=== PATIENT | male | born 1960 | race Two or more races ===

== ENCOUNTER 2022-02-13 19:36 | Inpatient (IN) | payer OTHER ==
[~2022-02-13] VITALS: Ht 170.2 cm; Wt 95.0 kg
[2022-02-13] MEDS ORDERED: SODIUM CHLORIDE 0.9% 1,000 ML IVB ONE (20:15)
[2022-02-13] MEDS ORDERED: MORPHINE SULFATE 4 MG/ML SYR/VIAL IV ONE (20:15)
[2022-02-13] MEDS ORDERED: ONDANSETRON HCL 4 MG/2 ML VIAL IV ONE (20:15)
[2022-02-13 20:31] LABS: Urine Bacteria NONE SEEN /hpf (None Seen); Urine Blood Negative /uL (Negative); Urine Specific Gravity 1.015 (1.001-1.035); Urine WBC 1 /hpf (0 - 3)
[2022-02-13 21:27] LABS: Basophils # (auto) 0.1 10 ^3/uL (0-0.2); Basophils % (auto) 0.6 % (0.0-2.0); Eosinophils # (auto) 0.1 10 ^3/uL (0-0.8); Eosinophils % (auto) 0.4 % (0.0-7.0); Hematocrit 51.9 % (41.0-53.0); Hemoglobin 17.1 g/dL (13.5-17.5); Lymphocytes # (auto) 1.3 10 ^3/uL (0.4-5.4); Lymphocytes % (auto) 9.4 % (10.0-50.0); Mean Corpuscular Hemoglobin 30.4 pg (28.0-32.0); Mean Corpuscular Volume 92.2 fL (80.0-100.0); Monocytes # (auto) 0.8 10 ^3/uL (0-1.3); Monocytes % (auto) 5.5 % (0.0-12.0); Neutrophils % (auto) 84.1 % (37.0-80.0); Red Blood Cells 5.63 10^6/uL (4.5-5.90); Red Cell Distribution Width 13.1 % (11.8-14.3); White Blood Cell 14.2 10^3/uL (4.4-10.8)
[2022-02-13 21:38] LABS: Albumin 3.8 g/dL (3.4-5.0); BUN/Creatinine Ratio 12.6; Bilirubin, Total 0.6 mg/dL (0.2-1.0); Calcium 8.9 mg/dL (8.5-10.1); Potassium 4.2 mmol/L (3.5-5.1); Total Protein 7.3 g/dL (6.4-8.2)
[2022-02-13 21:45] LABS: INR 0.94 (0.9-1.15); Partial Thromboplastin Time 28.5 sec (24.6-33.4)
[2022-02-13] MEDS ORDERED: cloNIDine HCL 0.1 MG TAB PO ONE (23:15)
[2022-02-14 08:29] VITALS: BP 143/89
[2022-02-14] MEDS ORDERED: NITROGLYCERIN 0.4 MG SL TAB SL PRN (10:00)
[2022-02-14] MEDS ORDERED: MORPHINE SULFATE INJ 2 MG/ml SYRG IV PRN ×2 (10:00)
[2022-02-14] MEDS ORDERED: ONDANSETRON HCL 4 MG/2 ML VIAL IV PRN (10:00)
[2022-02-14] MEDS ORDERED: ACETAMINOPHEN 325 MG TAB PO PRN (10:00)
[2022-02-14] MEDS ORDERED: HYDROcodone-ACET 5/325MG TAB PO PRN (10:00)
[2022-02-14] MEDS ORDERED: SODIUM CHLORIDE 0.9% 2,000 ML IV ONE (10:15)
[2022-02-14] MEDS ORDERED: metroNIDAZOLE 500MG/100ML 100 ML IV ONE (10:15)
[2022-02-14] MEDS ORDERED: ENOXAPARIN SOD 40 MG/0.4 ML SYRINGE SC ONE (10:15)
[2022-02-14] MEDS ORDERED: cefTRIAXone 1GM/50ML D5W 50 ML IV ONE (10:15)
[2022-02-14] MEDS ORDERED: SODIUM CHLORIDE 0.9% 1,000 ML IV ONE (10:15)
[2022-02-14] MEDS ORDERED: PANTOPRAZOLE 40 MG/10 ML VIAL INJ IV ONE (10:15)
[2022-02-14 10:29] LABS: Basophils # (auto) 0 10 ^3/uL (0-0.2); Basophils % (auto) 0.4 % (0.0-2.0); Eosinophils # (auto) 0 10 ^3/uL (0-0.8); Eosinophils % (auto) 0.2 % (0.0-7.0); Hemoglobin 15.9 g/dL (13.5-17.5); Lymphocytes # (auto) 1.6 10 ^3/uL (0.4-5.4); Lymphocytes % (auto) 14.8 % (10.0-50.0); Mean Corpuscular Hemoglobin 30.9 pg (28.0-32.0); Mean Corpuscular Hgb Conc. 33.9 g/dL (32.0-36.0); Mean Corpuscular Volume 91.4 fL (80.0-100.0); Monocytes # (auto) 0.9 10 ^3/uL (0-1.3); Monocytes % (auto) 8.1 % (0.0-12.0); Neutrophils # (auto) 8.4 10 ^3/uL (1.6-8.6); Neutrophils % (auto) 76.5 % (37.0-80.0); Nucleated Red Blood Cells % 0.3 %; Red Blood Cells 5.14 10^6/uL (4.5-5.90); Red Cell Distribution Width 13.3 % (11.8-14.3)
[2022-02-14 10:58] VITALS: BP 147/94
[2022-02-14 11:21] LABS: Calcium 8.3 mg/dL (8.5-10.1)
[2022-02-14 11:28] LABS: BUN/Creatinine Ratio 12.3
[2022-02-14] MEDS ORDERED: CETI-195 PO (12:31)
[2022-02-14] MEDS ORDERED: LISI-716 PO (12:42)
[2022-02-14] MEDS ORDERED: FLUT1AER13 IN (12:42)
[2022-02-14] MEDS ORDERED: ALBU108A5 IN (12:42)
[2022-02-14] MEDS ORDERED: TRAZ-181 PO (12:42)
[2022-02-14] MEDS ORDERED: FLUT0.05 NAS (12:42)
[2022-02-14 13:00] VITALS: BP 145/84
[2022-02-14 17:00] VITALS: BP 135/77
[2022-02-14] MEDS: metroNIDAZOLE 500MG/100ML 100 ML IV SCH ×2 (17:36→23:16)
[2022-02-15] MEDS: metroNIDAZOLE 500MG/100ML 100 ML IV SCH (06:46)
[2022-02-15 08:22] LABS: Basophils # (auto) 0.1 10 ^3/uL (0-0.2); Eosinophils # (auto) 0.2 10 ^3/uL (0-0.8); Eosinophils % (auto) 2.4 % (0.0-7.0); Hemoglobin 16.3 g/dL (13.5-17.5); Lymphocytes # (auto) 2.4 10 ^3/uL (0.4-5.4); Lymphocytes % (auto) 36.4 % (10.0-50.0); Mean Corpuscular Hemoglobin 31.4 pg (28.0-32.0); Mean Corpuscular Hgb Conc. 34.7 g/dL (32.0-36.0); Mean Corpuscular Volume 90.4 fL (80.0-100.0); Monocytes # (auto) 0.7 10 ^3/uL (0-1.3); Monocytes % (auto) 10.2 % (0.0-12.0); Neutrophils # (auto) 3.2 10 ^3/uL (1.6-8.6); Nucleated Red Blood Cells % 0.1 %; Red Cell Distribution Width 13.1 % (11.8-14.3); White Blood Cell 6.5 10^3/uL (4.4-10.8)
[2022-02-15] MEDS ORDERED: cefTRIAXone 1GM/50ML D5W 50 ML IV SCH (09:00)
[2022-02-15] MEDS ORDERED: ENOXAPARIN SOD 40 MG/0.4 ML SYRINGE SC SCH (10:00)
[2022-02-15] MEDS ORDERED: PANTOPRAZOLE 40 MG/10 ML VIAL INJ IV SCH (10:00)
[2022-02-15] MEDS: diphenhdrAMINE HCL 50 MG/1 ML VL ONE ×2 (11:07→11:09)
[2022-02-15] MEDS: fentaNYL CITRATE 100 MCG/2 ML VL ONE ×2 (11:07→11:11)
[2022-02-15] MEDS: MIDAZOLAM HCL 5 MG/ML-1ML VIAL ONE ×3 (11:07→11:16)
[2022-02-15] MEDS ORDERED: SUCRALFATE 1 GM/10 ML ORAL SUSP PO SCH (11:30)
[2022-02-15 11:55] VITALS: BP 126/83
[2022-02-15] MEDS ORDERED: SODIUM CHLORIDE LOCK 10 ML ONE (12:44)
[2022-02-15] MEDS ORDERED: LIDOCAINE VISCOUS 2% 15ML UD ONE (12:45)
[2022-02-15] MEDS ORDERED: SUCR1SUS10 PO (13:43)
[2022-02-15] MEDS ORDERED: PANT40TA2 PO (13:43)
== END 2022-02-15 14:57 | disposition home or self-care (01) | DRG 392 ==
LOC: EDBD 19:36 → ER 19:39 → TELE 02-14 10:01 → TELE-WESTW 02-15 12:43
PROVIDERS: ADMIT Registered Nurse; ATTEND Internal Medicine
PROC: 0DB68ZX Excision of Stomach, Via Natural or Artificial Opening Endoscopic, Diagnostic (ICD-10-PCS; 2022-02-15)
PROC: 0DB48ZX Excision of Esophagogastric Junction, Via Natural or Artificial Opening Endoscopic, Diagnostic (ICD-10-PCS; 2022-02-15)
PROC: 0DB98ZX Excision of Duodenum, Via Natural or Artificial Opening Endoscopic, Diagnostic (ICD-10-PCS; principal; 2022-02-15 11:02)
DX: K29.70 Gastritis, unspecified, without bleeding (principal); I16.1 Hypertensive emergency; K22.10 Ulcer of esophagus without bleeding; Z20.822 Contact with and (suspected) exposure to COVID-19; D72.829 Elevated white blood cell count, unspecified; E66.01 Morbid (severe) obesity due to excess calories; F41.9 Anxiety disorder, unspecified; I10 Essential (primary) hypertension; J45.909 Unspecified asthma, uncomplicated; K76.0 Fatty (change of) liver, not elsewhere classified; K29.90 Gastroduodenitis, unspecified, without bleeding; Z68.32 Body mass index [BMI] 32.0-32.9, adult; Z88.2 Allergy status to sulfonamides; Z88.8 Allergy status to other drugs, medicaments and biological substances
CPT/HCPCS: 36415; 71045; 74176; 76705; 78226; 80048; 80053; 80061; 81001; 82150; 82270; 83036; 83605; 83690; 84443; 84484; 85025; 85610; 85730; 87040; 87086; 87426; 96361; 96365; 96375; C9113; G0378; J0696; J2250; J3490